=== PATIENT | male | born 1985 | race Caucasian/White ===

== ENCOUNTER 2024-05-02 07:13 | Emergency (ER) | payer MEDICAID ==
[~2024-05-02] VITALS: Ht 165.1 cm; Wt 113.5 kg
[~2024-05-02 07:13] MED LIST: CEPH-571 PO
[2024-05-02 07:22] VITALS: BP 163/89; PULSE 48; RESP 16; TEMP 98.6; O2SAT 98
[2024-05-02] MEDS: prednisone 10mg tablet PO ONE (08:37)
[2024-05-02] MEDS ORDERED: METH4TAB81 PO (08:41)
== END 2024-05-02 08:51 | disposition home or self-care (01) ==
LOC: ER 07:13
DX: L50.9 Urticaria, unspecified (principal); Z79.2 Long term (current) use of antibiotics
CPT/HCPCS: 99283; J7512